=== PATIENT | male | born 1965 | race Caucasian/White ===

== ENCOUNTER 2021-10-18 15:18 | Inpatient (IN) | payer OTHER ==
[~2021-10-18] VITALS: Ht 170.2 cm; Wt 100.3 kg
[2021-10-18 16:31] LABS: BASOPHIL 0.4 % (0-2); EOSINOPHIL 1.2 % (0-5); HGB 12.2 g/dl (13.2-18.0); LYMPHOCYTE 7.8 % (15-48); MCH 30.8 pg (25.0-31.0); MCHC 32.1 g/dL (32.0-36.0); MONOCYTE 10.3 % (0-12); MPV 9.1 fL (6.0-9.5); NEUTROPHIL 79.4 % (41-80); NRBC 0; PLT 319 K/uL (150-400); RBC 3.96 M/uL (4.70-6.00); RDW 11.9 % (11.5-14.0); WBC 15.1 K/uL (4.0-10.5)
[2021-10-18 17:10] LABS: ALBUMIN 2.5 g/dL (3.4-5.0); BILIRUBIN - TOTAL 0.5 mg/dL (0.2-1.0); BUN/CREAT RATIO (CALC) 20.9 RATIO; CREATININE 0.91 mg/dL (0.67-1.17); GLOBULIN (CALCULATION) 4.6 g/dL; TOTAL PROTEIN 7.1 g/dL (6.4-8.2)
[2021-10-19 06:35] LABS: BASOPHIL 0.2 % (0-2); EOSINOPHIL 0 % (0-5); HCT 35.4 % (42.0-52.0); HGB 11.6 g/dl (13.2-18.0); LYMPHOCYTE 7.4 % (15-48); MCHC 32.8 g/dL (32.0-36.0); MCV 94.7 fL (78.0-100.0); MONOCYTE 6.6 % (0-12); MPV 9.7 fL (6.0-9.5); NEUTROPHIL 84.7 % (41-80); NRBC 0; PLT 291 K/uL (150-400); RBC 3.74 M/uL (4.70-6.00); RDW 11.9 % (11.5-14.0); WBC 14.1 K/uL (4.0-10.5)
[2021-10-19 07:06] LABS: IRON % SATURATION 13.5 %SAT (20-50)
[2021-10-19 07:33] LABS: ALBUMIN 2.2 g/dL (3.4-5.0); BILIRUBIN - TOTAL 0.4 mg/dL (0.2-1.0); BUN/CREAT RATIO (CALC) 25.7 RATIO; CREATININE 0.7 mg/dL (0.67-1.17); GLOBULIN (CALCULATION) 4.2 g/dL; TOTAL PROTEIN 6.4 g/dL (6.4-8.2)
[2021-10-20 06:41] LABS: BASOPHIL 0.1 % (0-2); EOSINOPHIL 0.1 % (0-5); HCT 34.4 % (42.0-52.0); HGB 11.1 g/dl (13.2-18.0); LYMPHOCYTE 12.1 % (15-48); MCH 30.7 pg (25.0-31.0); MCHC 32.3 g/dL (32.0-36.0); MCV 95.3 fL (78.0-100.0); MONOCYTE 8.7 % (0-12); MPV 9.9 fL (6.0-9.5); NEUTROPHIL 78.1 % (41-80); NRBC 0; PLT 316 K/uL (150-400); RBC 3.61 M/uL (4.70-6.00); WBC 15.8 K/uL (4.0-10.5)
[2021-10-20 07:39] LABS: ALBUMIN 2.1 g/dL (3.4-5.0); BILIRUBIN - TOTAL 0.4 mg/dL (0.2-1.0); BUN/CREAT RATIO (CALC) 25.3 RATIO; CREATININE 0.79 mg/dL (0.67-1.17); TOTAL PROTEIN 6.1 g/dL (6.4-8.2)
[2021-10-21 06:16] LABS: BASOPHIL 0.2 % (0-2); EOSINOPHIL 0.2 % (0-5); HCT 34.4 % (42.0-52.0); HGB 11.1 g/dl (13.2-18.0); LYMPHOCYTE 13.5 % (15-48); MCH 30.5 pg (25.0-31.0); MCHC 32.3 g/dL (32.0-36.0); MCV 94.5 fL (78.0-100.0); MONOCYTE 10.3 % (0-12); MPV 9.8 fL (6.0-9.5); NEUTROPHIL 74.4 % (41-80); NRBC 0; PLT 342 K/uL (150-400); RBC 3.64 M/uL (4.70-6.00); RDW 11.9 % (11.5-14.0); WBC 13.2 K/uL (4.0-10.5)
[2021-10-21 06:37] LABS: ALBUMIN 2.1 g/dL (3.4-5.0); BILIRUBIN - TOTAL 0.4 mg/dL (0.2-1.0); BUN/CREAT RATIO (CALC) 21.2 RATIO; CREATININE 0.85 mg/dL (0.67-1.17); GLOBULIN (CALCULATION) 3.9 g/dL; POTASSIUM 4.1 mmol/L (3.5-5.1)
--- NOTE | 2021-10-21 12:37 | NUR ---
10/21/21 A referral was made to [facility] for 02 at 4 L in anticipation of discharge on 10/22/21.
[2021-10-22 04:37] LABS: BASOPHIL 0.2 % (0-2); EOSINOPHIL 0 % (0-5); HGB 11.6 g/dl (13.2-18.0); LYMPHOCYTE 10.9 % (15-48); MCH 30.7 pg (25.0-31.0); MCHC 32.2 g/dL (32.0-36.0); MCV 95.2 fL (78.0-100.0); MONOCYTE 9.6 % (0-12); MPV 9.7 fL (6.0-9.5); NEUTROPHIL 76.7 % (41-80); NRBC 0.2; PLT 362 K/uL (150-400); RBC 3.78 M/uL (4.70-6.00); RDW 12.2 % (11.5-14.0)
[2021-10-22 05:12] LABS: ALBUMIN 2.3 g/dL (3.4-5.0); BILIRUBIN - TOTAL 0.4 mg/dL (0.2-1.0); BUN/CREAT RATIO (CALC) 18.2 RATIO; CREATININE 0.88 mg/dL (0.67-1.17); GLOBULIN (CALCULATION) 3.9 g/dL; POTASSIUM 4.6 mmol/L (3.5-5.1); TOTAL PROTEIN 6.2 g/dL (6.4-8.2)
[2021-10-22] MEDS ORDERED: DEXAMETHASONE 2M2 MG PO (12:19)
[2021-10-22] MEDS ORDERED: PROVENTIL HFA6.7 GM INH (12:19)
[2021-10-22] MEDS ORDERED: FOLIC ACID1 MG PO (12:19)
== END 2021-10-22 13:25 | disposition home or self-care (01) | DRG 871 ==
LOC: FER 15:18 → FMS 17:11
PROVIDERS: Emergency Medicine; ADMIT Family Medicine
PROC: 8E0ZXY6 Isolation (ICD-10-PCS; principal; 2021-10-18)
PROC: XW033E5 Introduction of Remdesivir Anti-infective into Peripheral Vein, Percutaneous Approach, New Technology Group 5 (ICD-10-PCS; 2021-10-18)
DX: A41.89 Other specified sepsis (principal); U07.1 COVID-19; J12.82 Pneumonia due to coronavirus disease 2019; J96.01 Acute respiratory failure with hypoxia; R65.20 Severe sepsis without septic shock; D50.9 Iron deficiency anemia, unspecified; E66.9 Obesity, unspecified; Z66 Do not resuscitate; Z96.651 Presence of right artificial knee joint; I10 Essential (primary) hypertension; Z68.34 Body mass index [BMI] 34.0-34.9, adult; Z98.890 Other specified postprocedural states; Z80.42 Family history of malignant neoplasm of prostate
CPT/HCPCS: 36415; 36600; 71045; 71275; 80053; 82607; 82728; 82803; 83540; 83550; 84484; 85025; 85379; 86140; 93005; 94010; 94640; 94760; 94762; C9399; J0456; J1100; J1650; J2916; J7030; J7050; J8540; Q9967; U0002